=== PATIENT | female | born 1965 | race Caucasian/White ===

== ENCOUNTER 2017-10-13 11:25 | Emergency (ER) | payer OTHER ==
--- NOTE | 2017-10-13 13:09 | EDM.PDOC ---
ED HPI GENERAL MEDICAL PROBLEM - General Chief Complaint: Head Injury Stated Complaint: HEAD INJURY Time Seen by Provider: 10/13/17 11:25 Source of Information: Reports: Patient, Other (coworker) History Limitations: Reports: No Limitations - History of Present Illness INITIAL COMMENTS - FREE TEXT/NARRATIVE: 52 y.o.w.cintia came to the ed after a door fell onto her head. No LOC, No N/V/D. Ptfelt a lump at her right parietal area. No open wound. No other acute medical issues. BP 120/67 RR 18 Pulse 88 Temp 36.5 Pulse Onset: Today Onset Date: 10/13/17 Onset Time: 10:00 Duration: Hour(s): Location: Reports: Head Quality: Reports: Dull Severity: Mild Improves with: Reports: Rest Worsens with: Reports: Movement Context: Reports: Trauma Associated Symptoms: Reports: No Other Symptoms - Related Data Allergies Allergy/AdvReac Type Severity Reaction Status Date / Time No Known Allergies Allergy Verified 10/13/17 12:04 Home Meds: Home Meds NK [No Known Home Meds] 10/13/17 [History] ED ROS GENERAL - Review of Systems Review Of Systems: See Below Constitutional: Reports: No Symptoms HEENT: Reports: No Symptoms Respiratory: Reports: No Symptoms Cardiovascular: Reports: No Symptoms Endocrine: Reports: No Symptoms GI/Abdominal: Reports: No Symptoms : Reports: No Symptoms Musculoskeletal: Reports: Other (minor glenda tenderness r parietal) Skin: Reports: No Symptoms Neurological: Reports: No Symptoms Psychiatric: Reports: No Symptoms Hematologic/Lymphatic: Reports: No Symptoms Immunologic: Reports: No Symptoms ED EXAM, HEAD INJURY - Physical Exam Exam: See Below Exam Limited By: No Limitations General Appearance: Alert, WD/WN, No Apparent Distress Head: Normocephalic, Scalp Hematoma (right paretal, no bleed) Eyes: Bilateral Eye: Normal Inspection Ears: Normal External Exam, Normal Canal, Normal TMs Nose: Normal Inspection, Normal Mucousa Throat/Mouth: Normal Inspection, Normal Lips, Normal Voice, No Airway Compromise , Other (poor dentition) Neck: Non-Tender, Full Range of Motion, Normal Alignment, Normal Inspection Respiratory: No Respiratory Distress, Lungs Clear, Normal Breath Sounds, Chest Non-Tender Cardiovascular: Normal Peripheral Pulses, Regular Rate, Rhythm, No Edema, No Murmur, No Rub GI/Abdominal Exam: Normal Bowel Sounds, Soft, Non-Tender (Female) Exam: Deferred Rectal (Female) Exam: Deferred Back Exam: Normal Inspection, Full Range of Motion Extremities: Normal Inspection, Normal Range of Motion, Non-Tender, No Pedal Edema, Normal Capillary 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 No LOC, No N/V/D. Ptfelt a lump at her right parietal area. No open wound. No other acute medical issues. BP 120/67 RR 18 Pulse 88 Temp 36.5 Pulse PE: 52 cy.o.w f with a SQ hematoma right parietal glenda Imaging: CT head: Chronic sinusitis, 6mm lacunar infarct left basal ganglia, remote, right mastod efussion. No acute intracranial pathology Impresion Head injury at work, minor. SQ hematoma right glenda Tx: ICE Reexam: Improved Plan: D/C with instructions Last Recorded V/S: Last Vital Signs Temp 36.3 C 10/13/17 11:25 Pulse 88 10/13/17 11:25 Resp 18 10/13/17 13:30 BP 114/86 10/13/17 13:30 Pulse Ox 97 10/13/17 13:30 - Orders/Labs/Meds Orders: Active Orders 24 hr Category Date Time Status Head wo Cont [CT] Stat Exams 10/13/17 11:41 Taken Departure - Departure Time of Disposition: 13:09 Disposition: Home, Self-Care 01 Condition: Good Clinical Impression: Hematoma - Discharge Information Referrals: PCP,None [Primary Care Provider] - Forms: ED Department Discharge Additional Instructions: Please apply ice to affected area, Motrin for pain, f/u, come back if your symptoms get worse acutely - My Orders Last 24 Hours: My Active Orders 10/13/17 11:41 Head wo Cont [CT] Stat - Assessment/Plan Last 24 Hours: My Active Orders 10/13/17 11:41 Head wo Cont [CT] Stat
== END 2017-10-13 13:56 | disposition home or self-care (01) ==
LOC: FB.ED 11:25
DX: S00.03XA Contusion of scalp, initial encounter (principal); S09.90XA Unspecified injury of head, initial encounter; W20.8XXA Other cause of strike by thrown, projected or falling object, initial encounter
CPT/HCPCS: 70450; 99000; 99283